=== PATIENT | male | born 1940 | race Caucasian/White ===

== ENCOUNTER 2020-03-31 12:08 | Emergency (ER) | payer MEDICARE, OTHER ==
[~2020-03-31] VITALS: Ht 182.9 cm; Wt 91.0 kg
--- NOTE | 2020-03-31 12:50 | NUR ---
NEUROSURGERY PHYSICIAN: PT TO ROOM FROM LOBBY VIA WHEELCHAIR
[2020-03-31 12:53] LABS: BASOPHILS % (AUTO) 1 % (0-1); EOSINOPHILS % (AUTO) 1 % (1-7); LYMPHOCYTES % (AUTO) 28 % (22-44); MEAN CORPUSCULAR HEMOGLOBIN 31.7 pg (27.5-34.5); MEAN CORPUSCULAR HGB CONC 33.2 g/dL (33.2-36.2); MEAN PLATELET VOLUME 9.7 fL (7.4-10.4); MONOCYTES % (AUTO) 6 % (2-9); NEUTROPHILS % (AUTO) 65 % (42-75); PLATELET COUNT 162 x10^3/uL (130-400); RED BLOOD COUNT 4.45 x10^6/uL (4.38-5.82); RED CELL DISTRIBUTION WIDTH 13.1 % (9.4-14.8)
--- NOTE | 2020-03-31 12:53 | NUR ---
PT WHEELED BACK TO ROOM VIA WC BY FAMILY.
[2020-03-31 12:54] LABS: MD NO
--- NOTE | 2020-03-31 12:59 | NUR ---
FIRST ENCOUNTER WITH PT: PER REPORT BY PT'S SON RIGHT GROIN PAIN SINCE SUNDAY. PT WAS SENT TO ED FROM OUTPT RADIOLOGY D/T INCREASING RIGHT GROIN PAIN. SON STATES NO TRAUMA TO RIGHT GROIN.
[2020-03-31] MEDS ORDERED: CARV-39 PO (13:01)
[2020-03-31] MEDS ORDERED: AMLO-150 PO (13:01)
--- NOTE | 2020-03-31 13:01 | NUR ---
SON STATES PATIENT IS UNABLE TO AMBULATE D/T PAIN. PT LIVES WITH SON.
[2020-03-31 13:05] LABS: ALANINE AMINOTRANSFERASE 21 U/L (12-78); ALBUMIN 3.9 g/dL (3.4-5.0); ANION GAP 7 mmol/L (5-15); CALCIUM 9.3 mg/dL (8.5-10.1); CHLORIDE 108 mmol/L (98-107); CREATININE 2.35 mg/dL (0.7-1.3)
[2020-03-31 13:07] LABS: ALKALINE PHOSPHATASE 66 U/L (45-117); BILIRUBIN,TOTAL 0.7 mg/dL (0.2-1.0); TOTAL PROTEIN 7.8 g/dL (6.4-8.2)
--- NOTE | 2020-03-31 13:09 | NUR ---
BREAK RN: PT PROVIDED W/ URINAL EDUCATED ON NEED FOR SAMPLE.
--- NOTE | 2020-03-31 13:21 | NUR ---
BREAK RN: PER PTS FAMILY PT HAS HX OF AKF AFER STOPPING HTN MEDS IN 2019, CHF (RESOLVED), CHRONIC BACK/KNEE/HIP PAIN. LINDA MEAL COOK AT BEDSIDE.
--- NOTE | 2020-03-31 13:40 | NUR ---
BREAK RN: PT ENCOURAGED TO USE URINAL FOR UA.
--- NOTE | 2020-03-31 14:09 | NUR ---
PT ABLE TO PROVIDED RN WITH A URINE SAMPLE. COLLECTED AND SENT TO LAB. AWAITING CT SCAN. PT SITTING COMFORTABLY ON GURNEY. SON STILL AT BEDSIDE. NO NEEDS AT THIS TIME. RN TO CONTINUE TO MONITOR.
[2020-03-31 14:37] LABS: MICROSCOPIC AUTO
[2020-03-31] MEDS ORDERED: HYDROcodone/APAP 5/325 TABLET ONE (15:26)
[2020-03-31] MEDS ORDERED: HYDROcodone/APAP 5/325 TABLET PO ONE (15:30)
[2020-03-31 15:32] VITALS: BP 186/99
--- NOTE | 2020-03-31 15:36 | NUR ---
ERMD WOULD LIKE RN TO NOT ADMINISTER NORCO PER EMAR. ERMD TO ADD ANOTHER MEDICATION.
[2020-03-31] MEDS ORDERED: ACETAMINOPHEN 500 MG TABLET ONE (15:44)
--- NOTE | 2020-03-31 15:45 | NUR ---
MEDICATION ADMINISTERED PER EMAR. ERMD AWARE OF PT'S HTN. NO INTERVENTIONS AT THIS TIME.
[2020-03-31] MEDS ORDERED: ACETAMINOPHEN 500 MG TABLET PO ONE (16:00)
--- NOTE | 2020-03-31 16:12 | NUR ---
PT DC HOME IN A STABLE CONDITION. DC INSTRUCTIONS DISCUSSED WITH PT AND SON. PT AND SON VERBALIZED UNDERSTANDING. NO FURTHER QUESTIONS OR CONCERNS EXPRESSED AT THAT TIME. RN AND SON HELPED PT GET DRESSED. PT WAS WC OUT OF ED BY SON TO CAR.
== END 2020-03-31 16:14 | disposition home or self-care (01) ==
LOC: ED 13:34
DX: M77.9 Enthesopathy, unspecified (principal); I12.0 Hypertensive chronic kidney disease with stage 5 chronic kidney disease or end stage renal disease; N18.9 Chronic kidney disease, unspecified; R53.1 Weakness
CPT/HCPCS: 36415; 73502; 73700; 80053; 81001; 85025; 99285; J7512; 78608; A9552